=== PATIENT | female | born 1945 | race African-American/Black ===

== ENCOUNTER 2018-06-02 10:47 | Outpatient (CLI) | payer MEDICARE, BC ==
--- NOTE | 2018-06-02 12:25 | RAD ---
PA AND LATERAL VIEWS CHEST: Date: 06/02/18 HISTORY: Shortness of breath. FINDINGS: There are no previous exams for comparison. The heart is enlarged. The aorta is tortuous. The lungs are expanded without focal areas of consolida tion, pneumothoraces, jodi pulmonary edema, or pleural effusions. There are degenerative changes in the spine. IMPRESSION: Cardiomegaly. POS: [facility]
== END 2018-06-02 10:48 | disposition home or self-care (01) ==
LOC: BICRAD 10:47
PROVIDERS: ATTEND Internal Medicine
DX: R06.02 Shortness of breath (principal); I51.7 Cardiomegaly
CPT/HCPCS: 36415; 71046; 80053; 80061; 83036; 83880; 84443; 85025

== ENCOUNTER 2018-07-11 13:37 | Outpatient (CLI) | payer MEDICARE, BC ==
--- NOTE | 2018-07-11 16:27 | CT ---
EXAM: Chest CT scan With contrast: HISTORY: Shortness of breath and chest pain for one month COMPARISON: None FINDINGS: No mediastinal mass or adenopathy. Minimal patchy subpleural linear parenchymal changes bilaterally, nonspecific. No pleural or pericardial effusion. 1.9 cm diameter right renal exophytic low attenuation mass but not definitively a benign cyst, depend ing upon concern follow-up additional imaging with and without IV contrast with renal mass protocol might be considered. Dilated aortic root measuring 4.5 cm. Cardiomegaly. IMPRESSION: Dilated aortic root at 4.5 cm. Cardiomegaly. Generalized ectasia of the aorta. 1.9 cm exophytic right renal hypo-attenuating mass but not a clearly defined benign cyst. Additional imaging as above.
== END 2018-07-11 13:38 | disposition home or self-care (01) ==
LOC: SCSCT 13:37
PROVIDERS: ATTEND Internal Medicine Cardiovascular Disease
DX: I45.10 Unspecified right bundle-branch block (principal); R06.02 Shortness of breath; I51.7 Cardiomegaly; I77.819 Aortic ectasia, unspecified site
CPT/HCPCS: 71260; 82565

== ENCOUNTER 2018-07-29 05:54 | Outpatient (CLI) | payer MEDICARE, BC ==
[2018-07-29 09:40] LABS: #Eosinphils 0.1 thou/uL (0.0-0.7); #Lymphocytes 1.2 thou/uL (1.20-3.40); #Monocytes 0.4 thou/uL (0.11-0.59); #Neutrophils 2.4 thou/uL (1.40-6.50); %Basophils 0.4 % (0.0-1.0); %Eosinophils 2.6 % (0.0-10.0); %Lymphocytes 28.3 % (21.0-51.0); %Monocytes 8.5 % (0.0-10.0); %Neutrophils 60.1 % (42.0-75.0); Hemoglobin 12.6 g/dL (12.0-16.0); Mean Corpuscular HGB CONC 31.6 g/dL (32.0-36.0); Mean Corpuscular Hemoglobin 28.5 pg (27.0-31.0); Mean Corpuscular Volume 90.3 fL (78.0-98.0); Mean Platelet Volume 8.5 fL (7.4-10.4); Platelet Count 198 thou/uL (130-400); RBC Distribution Width 14.3 % (11.5-14.5); White Blood Cell (WBC) Count 4.1 thou/uL (4.8-10.8)
[2018-07-29 09:46] LABS: PTT 26.6 SEC (22.9-36.1); Prothrombin Time 13.1 SEC (12.0-14.7)
[2018-07-29 10:00] LABS: ALT (SGPT) Less than 7 U/L (8-55); AST (SGOT) 14 U/L (5-34); Albumin 3.9 g/dL (3.4-4.8); Alkaline Phosphatase 109 U/L (40-150); Anion Gap 11 mmol/L (10-20); BUN (Urea Nitrogen) 25 mg/dL (9.8-20.1); Bilirubin, Total 1.1 mg/dL (0.2-1.2); Calc. Creatinine Clearance 0 mL/min (70-130); Calcium 9.4 mg/dL (7.8-10.44); Carbon Dioxide 27 mmol/L (23-31); Chloride 106 mmol/L (98-107); Estimated GFR-MDRD 67; Globulin 2.7 g/dL (2.4-3.5); Glucose 83 mg/dL (83-110); Potassium 4.1 mmol/L (3.5-5.1); Protein, Total 6.6 g/dL (6.0-8.3); Sodium 140 mmol/L (136-145)
== END 2018-07-29 05:55 | disposition home or self-care (01) ==
LOC: LABBT 05:54
PROVIDERS: ATTEND Emergency Medicine
DX: Z01.812 Encounter for preprocedural laboratory examination (principal); R94.39 Abnormal result of other cardiovascular function study
CPT/HCPCS: 80053; 85025; 85610; 85730

== ENCOUNTER → 2018-08-01 | Day surgery (SDC) | payer MEDICARE, BC ==
[2018-07-29 08:58] VITALS: BMI 46.6
[~2018-08-01] MED LIST: Fentanyl 100 MCG/2 ML VIAL ONE; Heparin 10,000 UNITS/1 ML VIAL ONE; Iopamidol 370 76% 100 ML VIAL ONE; Midazolam HCl 2 mg/2 ml Vial ONE; Nitroglycerin 100MG/250ML BOT 250 ML ONE; Verapamil 5 MG/2 ML VIAL ONE
[2018-08-01 06:52] LABS: Cardiac Risk 3.5 (Less than 4.5)
== END ==
LOC: CCL 05:57
PROVIDERS: ATTEND Internal Medicine Cardiovascular Disease
PROC: 4A023N7 Measurement of Cardiac Sampling and Pressure, Left Heart, Percutaneous Approach (ICD-10-PCS; principal; 2018-08-01)
PROC: B2111ZZ Fluoroscopy of Multiple Coronary Arteries using Low Osmolar Contrast (ICD-10-PCS; 2018-08-01)
DX: R94.39 Abnormal result of other cardiovascular function study (principal); I45.10 Unspecified right bundle-branch block; I71.2 Thoracic aortic aneurysm, without rupture; I42.0 Dilated cardiomyopathy; I10 Essential (primary) hypertension; Z79.899 Other long term (current) drug therapy
CPT/HCPCS: 36415; 80061; 93458; 99152; 99153; C1769; J1644; J2250; J3010; Q9967

== ENCOUNTER 2019-10-05 12:44 | Outpatient (CLI) | payer MEDICARE, BC ==
[~2019-10-05 12:44] MED LIST changes: -Fentanyl 100 MCG/2 ML VIAL ONE; -Heparin 10,000 UNITS/1 ML VIAL ONE; -Iopamidol 370 76% 100 ML VIAL ONE; +Iopamidol-370 76% 500 ML 1 ML ONE; -Midazolam HCl 2 mg/2 ml Vial ONE; -Nitroglycerin 100MG/250ML BOT 250 ML ONE; -Verapamil 5 MG/2 ML VIAL ONE
--- NOTE | 2019-10-05 14:00 | CT ---
Exam: CT angiogram of the chest HISTORY: Evaluate for possible thoracic aortic aneurysm COMPARISON: None TECHNIQUE: CT angiogram of the chest is performed in the axial plane. Three-dimensional reformatted i mages are submitted for interpretation FINDINGS: Mediastinum: No mass, lymphadenopathy or hematoma. HEART: Normal size. No significant pericardial fluid. Aorta: Mild dilatation of the ascending thoracic aorta measuring 4.8 x 4.5 cm at the level of the rig ht pulmonary artery. The aortic arch and descending thoracic aorta as well as the upper abdominal aorta do not demonstrate any aneurysmal dilatation. Upper solid abdominal viscera: 0.9 x 0.5 cm hypodensity in the left hepatic lobe, too small to furthe r characterize. Incompletely evaluated 1.4 x 1.2 cm isodense mass emanating from the right renal cortex. Indeterminate hypodense mass with attenuation coefficient of 33 Hounsfield units, anterior to the left kidney and posterior to the body of the pancreas measuring 2.8 x 2.1 cm. Lesion may be associated with the left adrenal gland. Trachea and central bronchi: Patent Pleural spaces: No effusion Lung parenchyma: No masses or consolidation. Pneumothorax: None Osseous structures: No lytic or blastic lesions Pulmonary arteries:Adequate opacification of pulmonary arterial system to the level of the segmental arteries. No filling defect to suggest thromboembolism. IMPRESSION: 1. Mild dilatation of the ascending thoracic aorta. 2. Indeterminate right renal lesion. 3. Indeterminate soft tissue density anterior to the left kidney and posterior to the pancreas. Lesio n may be associated with the lateral limb of the left adrenal gland. 4. Better interrogation with an abdomen MRI is recommended to assess both the lesion in the left uppe r quadrant as well as associated with the right kidney. Findings conveyed to Dr. Louis via [employer] 10/05/2019 at 1:58 PM Code CR Transcribed Date/Time: 10/05/2019 2:06 PM
== END 2019-10-05 12:45 | disposition home or self-care (01) ==
LOC: BICCT 12:44
PROVIDERS: ATTEND Internal Medicine Cardiovascular Disease
DX: I71.2 Thoracic aortic aneurysm, without rupture (principal); I77.810 Thoracic aortic ectasia; N28.89 Other specified disorders of kidney and ureter
CPT/HCPCS: 71275; 82565; Q9967

== ENCOUNTER 2019-10-14 10:42 | Outpatient (CLI) | payer MEDICARE, BC ==
--- NOTE | 2019-10-14 12:55 | MRI ---
EXAM: MRI of the abdomen without and with contrast COMPARISON: CTA chest 10/05/2019 HISTORY: Right kidney mass and lesion adjacent to the left kidney. TECHNIQUE: Multiplanar multi sequence MR images were taken of the abdomen without and with IV contras t. [An MRCP was performed.] FINDINGS: Liver: There is an 8 mm cyst in the left lobe of the liver. No intrahepatic biliary ductal dilatation . Normal signal without dropout on out of phase images. No abnormal enhancement. Gallbladder: No filling defects or gallbladder wall thickening. Common bile duct: Normal caliber without filling defects Adrenal glands: Unremarkable. Kidneys: No hydronephrosis. The 1.6 cm exophytic lesion in the right kidney does not demonstrate enha ncement and likely represents a hyperdense cyst. No abnormal areas of enhancement. Spleen: Unremarkable. Retroperitoneum: There is a 2.8 cm enhancing mass anterior to the left kidney which appears separate from the left adrenal gland. This may emanate from the posterior aspect of the pancreas. No enlarged lymph nodes Bones: No marrow signal abnormality. IMPRESSION: 1. Hyperdense right renal cyst 2. Nonspecific enhancing mass in the left retroperitoneum anterior to the left kidney. This could pot entially emanate from the pancreas. A follow-up CT in 3 months is recommended to ensure stability. Alternatively, a PET CT could be performed to evaluate for hypermetabolic activity.
== END 2019-10-14 10:43 | disposition home or self-care (01) ==
LOC: BICMRI 10:42
PROVIDERS: ATTEND Internal Medicine Cardiovascular Disease
DX: N28.89 Other specified disorders of kidney and ureter (principal); N28.1 Cyst of kidney, acquired
CPT/HCPCS: 74183; 82565

== ENCOUNTER 2019-12-24 11:57 | Outpatient (CLI) | payer MEDICARE, BC ==
--- NOTE | 2019-12-24 14:27 | PET ---
PET SCAN WITH CT ATTENUATION CORRECTION: HISTORY: Abnormal abdomen MRI and CT. Possible renal mass as well as a solid nodule in the left upper quadrant . TECHNIQUE: PET scan with CT attenuation correction was performed from the base of the brain the proximal thighs following the intravenous administration of 13 mL of [id number]. FINDINGS: Head and neck: No abnormal FDG localization. Chest: No abnormal FDG localization. Abdomen and pelvis: There is increased FDG avidity corresponding to a previously identified solid mas s in the left upper quadrant just posterior to the body of the pancreas and anterior to the left kidney. Maximum SUV is 8.5. Exophytic mass emanating from the right renal cortex is not FDG avid. Maximum SUV is 1.5. CT used for attenuation correction demonstrates an umbilical hernia containing mesenteric fat. Osseous structures: No abnormal FDG localization IMPRESSION: FDG avid solid mass in the left upper quadrant. Lesion may represent an exophytic cystic pancreatic n eoplasm. The second consideration could be a lesion emanating from the lateral limb of the left adrenal gland. Location of the lesion precludes percutaneous biopsy. Surgical consultation for possib le excision is recommended. Findings conveyed to Dr. Louis via [employer] 12/24/2019 at 2:26 PM Code CR. Transcribed Date/Time: 12/24/2019 2:35 PM
== END 2019-12-24 11:58 | disposition home or self-care (01) ==
LOC: PET 11:57
PROVIDERS: ATTEND Internal Medicine Cardiovascular Disease
DX: N28.89 Other specified disorders of kidney and ureter (principal); R19.02 Left upper quadrant abdominal swelling, mass and lump
CPT/HCPCS: 78815; A9552

== ENCOUNTER 2021-04-24 11:12 | Outpatient (CLI) | payer MEDICARE, BC | END 2021-04-24 11:13 | disposition home or self-care (01) | LOC: BICMAMMO 11:12 | PROVIDERS: ATTEND Internal Medicine | DX: Z12.31 Encounter for screening mammogram for malignant neoplasm of breast (principal); Z91.89 Other specified personal risk factors, not elsewhere classified | CPT/HCPCS: 77063; 77067 ==

== ENCOUNTER 2021-08-01 08:00 | Outpatient (CLI) | payer MEDICARE, BC ==
[2021-08-01] MEDS ORDERED: Iopamidol 370 76% 100 ML VIAL ONE (08:53)
== END 2021-08-01 08:01 | disposition home or self-care (01) ==
LOC: CT 08:00
PROVIDERS: ATTEND Internal Medicine Endocrinology, Diabetes & Metabolism
DX: K68.9 Other disorders of retroperitoneum (principal)
CPT/HCPCS: 74170; Q9967

== ENCOUNTER 2022-03-14 09:28 | Outpatient (CLI) | payer MEDICARE, BC ==
[2022-03-14] MEDS ORDERED: Magnevist 469MG/ML 20 ML VIAL ONE (16:07)
== END 2022-03-14 09:29 | disposition home or self-care (01) ==
LOC: MRI 09:28
PROVIDERS: ATTEND Internal Medicine Endocrinology, Diabetes & Metabolism
DX: D48.3 Neoplasm of uncertain behavior of retroperitoneum (principal)
CPT/HCPCS: 74183; A9579

== ENCOUNTER 2022-12-19 11:54 | Outpatient (CLI) | payer MEDICARE, BC | END 2022-12-19 11:55 | disposition home or self-care (01) | LOC: BICMAMMO 11:54 | PROVIDERS: ATTEND Internal Medicine | DX: Z12.31 Encounter for screening mammogram for malignant neoplasm of breast (principal); Z91.89 Other specified personal risk factors, not elsewhere classified | CPT/HCPCS: 77063; 77067 ==